=== PATIENT | female | born 1995 | race Asian ===

== ENCOUNTER → 2019-07-16 | Outpatient (CLI) | payer OTHER ==
[2019-07-17 06:06] LABS: RUBEOLA (MEASLES) IGG 40.8 AU/mL (Immune >29.9)
== END | disposition home or self-care (01) ==
LOC: EMPHLTH 07:11
PROVIDERS: ATTEND Internal Medicine
DX: Z02.1 Encounter for pre-employment examination (principal)
CPT/HCPCS: 86706; 86735; 86762; 86765; 86787

== ENCOUNTER 2019-11-13 13:34 | Emergency (ER) | payer BC, OTHER ==
[~2019-11-13] VITALS: Ht 152.4 cm; Wt 56.8 kg
[2019-11-13] MEDS ORDERED: ACETAMINOPHEN 500 MG TABLET PO ONE (14:45)
[2019-11-13 16:15] VITALS: BP 127/76
== END 2019-11-13 16:20 | disposition home or self-care (01) ==
LOC: EMS 13:34
DX: S09.90XA Unspecified injury of head, initial encounter (principal); Y04.8XXA Assault by other bodily force, initial encounter; Y93.89 Activity, other specified; Y92.89 Other specified places as the place of occurrence of the external cause; Y99.8 Other external cause status
CPT/HCPCS: 70450